=== PATIENT | male | born 1985 | race Asian ===

== ENCOUNTER 2020-01-04 10:10 | Inpatient (IN) | payer BC ==
[~2020-01-04] VITALS: Ht 170.2 cm; Wt 71.2 kg
[2020-01-04 10:20] VITALS: Ht 170.2 cm; Wt 71.2 kg
--- NOTE | 2020-01-04 10:43 | NUR ---
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 PT STATES HAVING INTERMITTENT BLOATING AND NAUSEA "FOR THE PAST MONTH". PT DENIES N/V/D AND DENIES PAIN OR BURNING WITH URINATION AT THIS TIME. PT IS A&OX4, NOTED TO BE HOLDING RUQ, VSS, PLACED IN GOWN, PLACED ON MONITOR, AWAITING MSE. WILL CONT TO MONITOR.
--- NOTE | 2020-01-04 11:15 | NUR ---
AT BEDSIDE FOR EVAL.
[2020-01-04 11:55] LABS: UA SPECIFIC GRAVITY >=1.030 (1.005-1.035); microscopic required? YES; urine erythrocyte TRACE (NEGATIVE)
--- NOTE | 2020-01-04 12:09 | NUR ---
US AT BEDSIDE
[2020-01-04 12:19] LABS: CALCIUM 8.8 mg/dL (8.5-10.1); CARBON DIOXIDE 28.5 mmol/L (21-32); CHLORIDE SERUM 102 mmol/L (98-107); GFR1 > 60 mL/min; GLUCOSE SERUM 348 mg/dL (74-106); POTASSIUM SERUM 4.9 mmol/L (3.5-5.1); SODIUM SERUM 137 mmol/L (136-145)
[2020-01-04 12:23] LABS: ALKALINE PHOSPHATASE 170 U/L (46-116); ALT/SGPT 43 U/L (16-63); AST/SGOT 13 U/L (15-37); BILIRUBIN TOTAL 0.64 mg/dL (0.20-1.00); LIPASE 181 IU/L (73-393); TOTAL PROTEIN, SERUM 6.3 g/dL (6.4-8.2)
[2020-01-04 12:24] LABS: ALBUMIN 2.9 g/dL (3.4-5.0)
[2020-01-04 12:30] LABS: BASOPHIL % 0.2 % (0-2); PLATELET COUNT 302 x10^3mcL (130-400); RED CELL DISTRIBUTION WIDTH 13.1 % (11.5-14.5)
--- NOTE | 2020-01-04 12:57 | NUR ---
LAB AT BEDSIDE
--- NOTE | 2020-01-04 13:38 | NUR ---
CALLED MEDSURG UNIT, RN UNVAILABLE TO TAKE REPORT WILL CALL BACK WHEN SHE RETURNS TO MEDSURG FLOOR.
--- NOTE | 2020-01-04 13:58 | NUR ---
REPORT GIVEN TO ADDIE, AWAITING PENDING SUNNY RESULTS TO TRANSFER PT.
--- NOTE | 2020-01-04 14:32 | NUR ---
PT MEDICATED WITH MORPHINE 1MG IVP PER ADMISSION ORDER.
[2020-01-04 15:19] VITALS: BP 143/88
--- NOTE | 2020-01-04 15:28 | NUR ---
RECEIVED PT FROM ER, PT ADMIT FOR ACUTE CHOLECYSTITIS, HYPERGLYCEMIA, PT IS A/O X4, VERBAL RESPONSIVE. LUNG SOUND CLEAR BILATERAL, NO COUGH, NO SOB. PT DENY ANY CHEST PAIN OR DISCOMFORT, BOWEL SOUND PRESENT ALL 4 QUADRANTS, C/O ABD PAIN AT RIGHT UPPER QUADRANTS, DENY ANY N/V. PEDAL PULSE PRESENT BOTH FEET, NO EDEMA, IV AT LEFT HAND, NO LEAKING, NO INFILTRATION. ALL ADLS ASSIST, ALL NEED MET, CALL LIGHT IN REACH, WILL CONTINUE TO MONITOR.
--- NOTE | 2020-01-04 15:30 | NUR ---
REC'VD PT FROM RESOURCE RN. WILL RESUME CARE
--- NOTE | 2020-01-04 16:03 | NUR ---
PT C/O ABDOMINAL PAIN, GIVEN NORCO PER EMAR
[2020-01-04 16:53] VITALS: BP 156/86
--- NOTE | 2020-01-04 16:53 | NUR ---
LEAD CARPENTER REPORTS TEMP OF 100.9, GIVEN TYLENOL PER EMAR.
--- NOTE | 2020-01-04 16:57 | NUR ---
PT C/O 08/17 ABDOMINAL PAIN, GIVEN MORPHINE PER EMAR
--- NOTE | 2020-01-04 18:53 | NUR ---
PT BROUGHT DOWN TO OR VIA BED ACCOMPANIED BY ASSOCIATE DEAN OF WOMEN AND MST RN. LYRIC WIPES DONE. IV SITE TO BECKY HENSON.
--- NOTE | 2020-01-04 18:54 | NUR ---
WILL ENDORSE CARE TO NEXT SHIFT
--- NOTE | 2020-01-04 20:00 | NUR ---
PT IN OR AT THIS TIME. WAITING FOR OR REPORT.
[2020-01-04 22:33] LABS: RED CELL DISTRIBUTION WIDTH 13.2 % (11.5-14.5)
[2020-01-04 22:38] LABS: PLATELET COUNT 402 x10^3mcL (130-400)
[2020-01-04 22:45] LABS: CALCIUM 8.1 mg/dL (8.5-10.1); CHLORIDE SERUM 103 mmol/L (98-107); CREATININE SERUM 1.3 mg/dL (0.7-1.3); GFR1 > 60 mL/min; GLUCOSE SERUM 269 mg/dL (74-106); POTASSIUM SERUM 4.7 mmol/L (3.5-5.1); SODIUM SERUM 136 mmol/L (136-145)
[2020-01-04 22:57] LABS: BAND NEUTROPHIL 6 % (0-10); BASOPHIL 0 % (0-2); MONOCYTE 3 % (0-7); SEGMENTED NEUTROPHILS 87 % (37-75)
[2020-01-04 22:59] LABS: rbc morphology (normal/abnorm) ABNORMAL (NORMAL)
[2020-01-05] VITALS (12 sets, daily range): BP systolic 106–156; BP diastolic 66–92
--- NOTE | 2020-01-05 01:01 | NUR ---
RECEIVED PT FROM OR. PT ARRIVED VIA GURNEY WITH OR NURSE. VITAL SIGNS ARE BP 150/92 (113), HR 90, O2 99 ON 4L NC, RR 16, TEMP 96.3, PT DENIES PAIN AT THIS TIME. PLACED PT ON TELE MONITOR #47, PT READING NSR. PT SLEEPING EASILY AROUSABLE, ORIENTEDX4. PULSES PALPABLE. NO EDEMA NOTED. PT PLACED ON 4L NC PER ORDER, SATURATION 99%. RR EVEN AND UNLABORED. PT DENIES CHEST PAIN/PRESSURE/SOB/DIFFICULTY BREATHING. BOWEL SOUNDS HYPOACTIVE. PT PLACED ON STRICT I&O. MILD GENERALIZED WEAKNESS. PT HAS 2 SURGICAL WOUNDS (RIGHT MID ABDOMEN AND UMBILICUS). NERI DRAIN PLACED ON R SIDE DRAINING SANGUINEOUS FLUID. PT DENIES PAIN AT THIS TIME, BUT REPORTS FEELING SORE. IV TO PTS R HAND AND L HAND, PATENT AND INTACT. CALL LIGHT WITHIN REACH. BED IN LOWEST POSITION. WILL CONTINUE TO MONITOR.
--- NOTE | 2020-01-05 01:19 | NUR ---
SPOKE WITH DOCTOR VALENZUELA REGARDING CURRENT ORDERS. DOCTOR ORDERED TO CONTINUE LR FLUIDS AND HOLD INSULIN UNTIL MORNING.
--- NOTE | 2020-01-05 03:33 | NUR ---
PT SLEEPING COMFORTABLY AT THIS TIME. NO SIGNS OF ACUTE DISTRESS NOTED. NO C/O PAIN OR DISCOMFORT. CALL LIGHT WITHIN REACH. BED IN LOWEST POSITION. WILL CONTINUE TO MONITOR.
--- NOTE | 2020-01-05 05:27 | NUR ---
EDUCATED PT REGARDING INCENTIVE SPIROMETER AND USING PILLOW WHEN NEEDING TO COUGH. PT REQUESTED PAIN MEDICATION, MEDICATED PT PER MAR. WILL CONTINUE TO MONITOR.
--- NOTE | 2020-01-05 06:35 | NUR ---
PT AWAKE AT THIS TIME. PT C/O PAIN TO ABD, MEDICATED PT PER MAR. NO SIGNS OF ACUTE DISTRESS NOTED. RR EVEN AND UNLABORED. IV TO R HAND INFUSING FLUIDS. IV TO L HAND SALINE LOCKED, PATENT AND INTACT. NO SIGNS OF INFILTRATION NOTED. ABD SITE CDI, NO SIGNS OF DRAINAGE NOTED. NERI DRAIN TO R SIDE, REMOVED 15ML OF SANGUINUOUS FLUID. PT VOIDED [address] ALL NEEDS/CONCERNS ADDRESSED THROUGHOUT THE SHIFT. WILL ENDORSE CARE TO ONCOMING SHIFT NURSE.
[2020-01-05 06:49] LABS: BASOPHIL % 0.1 % (0-2); PLATELET COUNT 335 x10^3mcL (130-400)
[2020-01-05 07:23] LABS: CALCIUM 8.7 mg/dL (8.5-10.1); CARBON DIOXIDE 23.6 mmol/L (21-32); CHLORIDE SERUM 102 mmol/L (98-107); GFR1 > 60 mL/min; GLUCOSE SERUM 315 mg/dL (74-106); POTASSIUM SERUM 4.9 mmol/L (3.5-5.1); SODIUM SERUM 138 mmol/L (136-145)
--- NOTE | 2020-01-05 07:50 | NUR ---
RECEIVED PT FROM PM NURSE. PT IS AWAKE AND RESTING COMFORTABLY AT THIS TIME. NO FACIAL DISTRESS OR SOB NOTED. PT IS A/OX4. ABLE TO MAKE NEEDS KNOWN. DENIES DUBOIS/DIZZINESS. LUNG SOUNDS CTA. BREATHING E/U ON 4L NC. TELE #47. DENIES CP/PRESSURE. PULSES EVEN AND PALPABLE. NO EDEMA NOTED. HYPOACTIVE BSX4. ABD SOFT AND NON DISTENDED. DENIES N/V/D. VOIDS FREELY. ON STRICT I & O. PT HAS TWO ABD INCISONS (RIGHT MID ABDOMEN AND UMBILICUS). NERI DRAIN IN PLACE TO THE RIGHT SIDE DRAINING SANGUINEOUS FLUID. NO C/O PAIN AT THIS TIME. IV TO R HAND AND L HAND NOTED. LR CURRENTLY INFUSING AT 125ML/HR TO RIGHT HAND. L HAND REMAINS SL. SCD IN PLACE. PILLOW IN PLACE FOR SPLINTING. BED AT LOWEST POSITION. CALL BUTTON WITHIN REACH. WILL CONTINUE TO MONITOR.
--- NOTE | 2020-01-05 11:36 | NUR ---
SPOKE TO DR VALENZUELA ABOUT THE FLUID THAT PATIENT IS GETTING. DR VALENZUELA SAID TO CONTINUE THE D5 1/2 NS. NOTED AND WILL ADMINISTER IT WHEN IT IS DUE.
[2020-01-05 12:36] LABS: BILIRUBIN DIRECT 0.3 mg/dL (0.0-0.2); BILIRUBIN TOTAL 0.7 mg/dL (0.20-1.00)
--- NOTE | 2020-01-05 12:36 | NUR ---
DR STALEY HERE TO SEE PATIENT AT BEDSIDE. ORDERED TORADAL 15MG IV Q8H TO BE GIVEN AROUND THE CLOCK FOR PAIN CONTROL. DR STALEY ALSO SAID TO ADJUST THE FLUID RATE FROM 80 TO 75ML/HR. NOTED AND CARRIED OUT.
[2020-01-05 12:37] LABS: ALBUMIN 2.5 g/dL (3.4-5.0); TOTAL PROTEIN, SERUM 5.2 g/dL (6.4-8.2)
--- NOTE | 2020-01-05 12:37 | NUR ---
SPOKE TO DR VALENZUELA ABOUT PT'S HIGH BLOOD SUGAR. DR VALENZUELA ORDERED LANTUS 20U NOW. NOTED AND CARRIED OUT.
--- NOTE | 2020-01-05 18:48 | NUR ---
NO ACUTE DISTRESS DURING SHIFT. ALL NEEDS MET AND ANTICIPATED. WILL ENDORSE CARE TO PM SHIFT FOR CONTINUITY OF CARE.
--- NOTE | 2020-01-05 19:25 | NUR ---
RECEIVED PT FROM DAY SHIFT RN. PT A&O X4. PT ON TELE MONITORING WITH NSR. PT DENIES CHEST PAIN OR DISCOMFORT AT THIS TIME. PULSES REGULAR AND NO EDEMA NOTED. LUNG SOUNDS CLEAR BILATERAL, ON 4L O2 W/NC, 99% OF O2SAT. BOWEL SOUNDS HYPOACTIVE.PT APPEARS WEAK AND CURRENTLY ON BEDREST. 2 ABD INCISIONS NOTED, NO WARM OR REDNESS NTOED, NERI DRAIN SITE INTACT AND PATENT. IV SITE INTACT AND PATENT, NO REDESS OR SWELLING NOTED. INSTRUCTED PT TO USE CALL LIGHT AND PHONE WHEN NEED ASSISTANCE. WILL CONTINUE TO MONITOR PT.
--- NOTE | 2020-01-05 22:16 | NUR ---
PT C/O ABDOMAN PAIN 07/18, NORCO PO GIVEN PRN SEE EMAR . WILL CONTINUE TO MONITOR PT.
--- NOTE | 2020-01-05 22:25 | NUR ---
CALLED REGARDING PT C/O AB PAIN 07/18, AND PT STATED " FEEL LIKE GAS BLOWING'. IS AWARE AND WILL CONTINUE TO MONITOR PT.
--- NOTE | 2020-01-05 22:57 | NUR ---
RECHECKED ON PT. PT STATED HE FEEL MUCH BETTER,THE PAIN IS LIKE 3/10, AND FEEL LESS GASSY NOW. INSTRUCTED PT TO CALL IF ACUTE CHANGES NOTED.
[2020-01-05 23:49] LABS: PLATELET COUNT 246 x10^3mcL (130-400); RED CELL DISTRIBUTION WIDTH 13.2 % (11.5-14.5)
[2020-01-05 23:53] LABS: BASOPHIL % 0 % (0-2)
[2020-01-06 00:10] LABS: ALKALINE PHOSPHATASE 105 U/L (46-116); ALT/SGPT 111 U/L (16-63); AST/SGOT 53 U/L (15-37); BILIRUBIN TOTAL 0.4 mg/dL (0.20-1.00); CALCIUM 8.6 mg/dL (8.5-10.1); CARBON DIOXIDE 30.6 mmol/L (21-32); CHLORIDE SERUM 102 mmol/L (98-107); GFR1 > 60 mL/min; GLUCOSE SERUM 303 mg/dL (74-106); POTASSIUM SERUM 4.3 mmol/L (3.5-5.1); SODIUM SERUM 133 mmol/L (136-145)
[2020-01-06 00:11] LABS: TOTAL PROTEIN, SERUM 5.5 g/dL (6.4-8.2)
[2020-01-06 00:12] LABS: ALBUMIN 2.2 g/dL (3.4-5.0)
--- NOTE | 2020-01-06 02:09 | NUR ---
PT C/O AB PAIN 06/17, BP:124/81,HR 109, MEDICATION MORPHINE 1ML IV PUSH GIVEN. WILL CONTINUE TO MONITOR PT.
--- NOTE | 2020-01-06 03:26 | NUR ---
PT REQUESTED FOR PAIN MEDICATION, SCALED PAIN AT 6/10 ON INCISION SITE. NORCO PO PRN GIVEN. WILL CONTINUE TO MONITOR PT.
[2020-01-06 06:05] VITALS: BP 128/80
--- NOTE | 2020-01-06 07:04 | NUR ---
PT RESTING IN BED. NO C/O PAIN AT THIS TIME. PT ON O2 2L W/NC. DENIES SOB OR N/V AT THIS TIME. WILL ENDORSE CARE TO DAY SHIFT RN.
[2020-01-06 07:20] LABS: BILIRUBIN DIRECT 0.24 mg/dL (0.0-0.2); BILIRUBIN TOTAL 0.43 mg/dL (0.20-1.00)
[2020-01-06 07:22] LABS: ALBUMIN 2.1 g/dL (3.4-5.0); TOTAL PROTEIN, SERUM 5.5 g/dL (6.4-8.2)
--- NOTE | 2020-01-06 07:39 | NUR ---
RECEIVED PT FROM PM NURSE. PT IS AWAKE AND TALKING ON THE PHONE AT THIS TIME. NO FACIAL DISTRESS OR SOB NOTED. PT IS A/OX4. ABLE TO MAKE NEEDS KNOWN. DENIES DUBOIS/DIZZINESS. LUNG SOUNDS DIMINISHED. BREATHING E/U ON 2L NC. TELE #47. DENIES CP/PRESSURE. PULSES EVEN AND PALPABLE. NO EDEMA NOTED. NORMACTIVE BSX4. ABD SOFT AND ROUND. DENIES N/V/D. VOIDS FREELY. URINAL BY BEDSIDE. GENERALIZED WEAKNESS NOTED. WILL ENCOURAGE PATIENT TO GET UP AND AMBULATE. PT HAS TWO ABD INCISIONS (RIGHT MID ABDOMEN AND UMBILICUS). NERI DRAIN IN PLACE TO RIGHT ABD DRAINING SCANT SANGUINEOUS FLUID. NO C/O PAIN AT THIS TIME.IV TO R HAND AND L HAND NOTED. PT IS CURRENTLY GETTING D5 1/2 NS AT 75ML/HR. BED AT LOWEST POSITION. CALL BUTTON WITHIN REACH. WILL CONTINUE TO MONITOR.
[2020-01-06 07:41] LABS: ALKALINE PHOSPHATASE 109 U/L (46-116); ALT/SGPT 128 U/L (16-63); AST/SGOT 60 U/L (15-37); CALCIUM 8.6 mg/dL (8.5-10.1); CARBON DIOXIDE 27.8 mmol/L (21-32); CHLORIDE SERUM 103 mmol/L (98-107); CREATININE SERUM 0.9 mg/dL (0.7-1.3); GFR1 > 60 mL/min; GLUCOSE SERUM 255 mg/dL (74-106); POTASSIUM SERUM 4.3 mmol/L (3.5-5.1); SODIUM SERUM 138 mmol/L (136-145)
[2020-01-06 07:43] LABS: ALBUMIN 2.1 g/dL (3.4-5.0); TOTAL PROTEIN, SERUM 5.6 g/dL (6.4-8.2)
[2020-01-06 08:07] LABS: BASOPHIL % 0.1 % (0-2); PLATELET COUNT 242 x10^3mcL (130-400); RED CELL DISTRIBUTION WIDTH 12.8 % (11.5-14.5)
[2020-01-06 09:15] VITALS: BP 133/75
--- NOTE | 2020-01-06 09:19 | NUR ---
PT HERE TO WORK WITH PT. PREMEDICATED PT WITH MORPHINE PRIOR TO AMBULATION. WILL CONTINUE TO MONITOR.
[2020-01-06 11:26] VITALS: BP 115/67
--- NOTE | 2020-01-06 11:58 | NUR ---
SPOKE TO DR VALENZUELA ABOUT PATIENT'S TRENDING HGB LEVEL FROM 8.2 TO 7.7. NNO AT THIS TIME. ALSO INQUIRED ABOUT THE TYPE OF FLUID THAT PATIENT SHOULD BE GETTING DUE TO PATIENT BEING ADVANCED TO A LOW FAT DIET AND HIS HIGH BLOOD GLUCOSE LEVEL. DR VALENZUELA SAID TO KEEP IT D5 1/2NS FOR NOW UNTIL PT CAN TOLERATE HIS DIET. WILL CONTINUE TO MONITOR.
--- NOTE | 2020-01-06 15:41 | NUR ---
ENCOURAGED PATIENT TO AMBULATE. PREMEDICATED PT WITH MORPHINE PRIOR. PT WAS ONLY ABLE TO DO STAND UP EXERCISES BY BEDSIDE. WILL CONTINUE TO MONITOR.
[2020-01-06 16:18] VITALS: BP 103/62
--- NOTE | 2020-01-06 18:56 | NUR ---
NO ACUTE DISTRESS DURING SHIFT. WILL ENDORSE CARE TO PM SHIFT FOR CONTINUITY OF CARE.
--- NOTE | 2020-01-06 19:35 | NUR ---
RECEIVED PT LAYING DOWN W HOB ELEVATED. AAOX4. ON TELE #[address] DENIES CHEST PAIN/CHEST PRESSURE. BREATHING IS EVEN AND UNLABORED ON 2LNC. NO RESP DISTRESS NOTED. ABD IS SOFT/DISTENDED. MID SURGICAL INCISION TO ABD, COMPOUNDING SCALER W ENRI DRAIN WITH MINIMAL DRAINAGE. GENERALIZED WEAKNESS. C/O 4/10 ABD PAIN, WILL MEDICATE ACCORDINGLY PER MAR ORDER. IV TO RH AND LH PATENT AND INTACT. NO ERYTHEMA NOTED. BED IN LOWEST POSITION. CALL LIGHT WITHIN REACH. WILL CONTINUE TO MONITOR.
[2020-01-06 20:39] VITALS: BP 113/77
--- NOTE | 2020-01-07 | NUR ---
PT RESTING COMFORTABLY. BREATHING IS EVEN AND UNLABORED ON 3LNC. NO RESP DISTRESS NOTED. WILL CONTINUE TO MONITOR.
[2020-01-07 04:06] VITALS: BP 118/76
--- NOTE | 2020-01-07 04:50 | NUR ---
PT RESTED IN INTERVALS THROUGHOUT THE NIGHT WITH NO ACUTE EVENTS OCCURRING DURING THE SHIFT. BREATHING IS EVEN AND UNLABORED ON 3LNC. NO RESP DISTRESS NOTED. WILL CONTINUE TO MONITOR AND ENDORSE CARE TO DAY SHIFT NURSE.
[2020-01-07 05:44] VITALS: BP 123/81
--- NOTE | 2020-01-07 06:50 | NUR ---
DR STALEY IN TO SEE PT AT THIS TIME. AWARE OF PT BEING TACHYCARDIC. STATED TO DC IV FLUIDS, ENCOURAGE PO FLUIDS, AND AMBULATE TODAY WTIH WALKER IF POSSIBLE. PT VERBALIZES UNDERSTANDING. WILL CARRY OUT ORDERS AT MAKE DAY SHIFT AWARE.
--- NOTE | 2020-01-07 07:36 | NUR ---
RECEIVED PT FROM PM NURSE. PT IS AWAKE AND RESTING AT THIS TIME. NO FACIAL DISTRESS OR SOB NOTED. ENCOURAGED PT TO GET UP AND AMBULATE TODAY MUCH HE COULD TOLERATE. PT VERBALIZED UNDERSTANDING. PT IS A/OX4. ABLE TO MAKE NEEDS KNOWN. DENIES DUBOIS/DIZZINESS. LUNG SOUNDS DIMINISHED. BREATHING E/U ON 3L NC. TELE $47. DENIES CHEST PAIN. PULSES EVEN AND PALPABLE. NO EDEMA NOTED. ACTIVE BSX4. ABD SOFT AND ROUND. DENIES N/V/D. VOIDS FREELY. URINAL BY BEDSIDE. TWO SURGICAL INCISIONS NOTED TO RIGHT MID ABDOMEN AND UMBILICUS. NERI DRAIN IN PLACE TO RIGHT ABD DRAINING SCANT SANGUINEOUS FLUID. C/O PRESSURE PAIN TO INCISION SITE WHEN SITTING UP. WILL MEDICATE PER EMAR. IV 20G TO R HAND AND L HAND. SL. FLUSHES WITH NO DIFFICULTY. BED AT LOWEST POSITION. CALL BUTTON WITHIN REACH. WILL CONTINUE TO MONITOR.
[2020-01-07 07:42] LABS: ALKALINE PHOSPHATASE 123 U/L (46-116); ALT/SGPT 93 U/L (16-63); AST/SGOT 31 U/L (15-37); BILIRUBIN DIRECT 0.22 mg/dL (0.0-0.2); BILIRUBIN TOTAL 0.44 mg/dL (0.20-1.00); CALCIUM 8.8 mg/dL (8.5-10.1); CARBON DIOXIDE 27.5 mmol/L (21-32); CHLORIDE SERUM 99 mmol/L (98-107); CREATININE SERUM 0.8 mg/dL (0.7-1.3); GFR1 > 60 mL/min; GLUCOSE SERUM 247 mg/dL (74-106); POTASSIUM SERUM 3.9 mmol/L (3.5-5.1); SODIUM SERUM 135 mmol/L (136-145)
[2020-01-07 07:43] LABS: RED CELL DISTRIBUTION WIDTH 13.3 % (11.5-14.5)
[2020-01-07 07:44] LABS: PLATELET COUNT 251 x10^3mcL (130-400)
[2020-01-07 07:45] LABS: TOTAL PROTEIN, SERUM 5.7 g/dL (6.4-8.2)
[2020-01-07 08:10] LABS: BASOPHIL % 0 % (0-2)
[2020-01-07 08:13] VITALS: BP 106/71
--- NOTE | 2020-01-07 11:54 | NUR ---
INQUIRED DR VALENZUELA ABOUT WHETHER TO CONTINUE PATIENT'S SCHEDULED AFTERNOON DOSE OF LANTUS D/T PT NO LONGER RECEIVING D5 1/[address] VALENZUELA AGREED TO DC THE LANTUS. NOTED AND CARRIED UT.
[2020-01-07 12:14] VITALS: BP 113/78
[2020-01-07 16:53] VITALS: BP 125/79
--- NOTE | 2020-01-07 18:38 | NUR ---
NO ACUTE DISTRESS NOTED DURING SHIFT. ALL NEEDS ANTICIPATED AND MET. PT AMBULATED FROM THE BED TO THE CHAIR SEVERAL TIMES. ALSO AMBULATED FROM BED TO RESTROOM WITHOUT ASSISTIVE DEVICE. WILL ENDORSE CARE TO PM SHIFT FOR CONTINUITY OF CARE.
--- NOTE | 2020-01-07 19:30 | NUR ---
RECEIVED PT LAYING IN BED WITH HOB ELEVATED. AAOX4. ON TELE #[address] DENIES CHEST PAIN/CHEST PRESSURE. BREATHING IS EVEN AND UNLABORED ON RA. NO RESP DISTRESS NOTED. ABD IS SOFT/DISTENDED. BS ACTIVE. DENIES N/V/D. VOIDS FREELY. DENIES DYSURIA. GENERALIZED WEAKNESS. TWO SURGICAL INCISIONS TO ABD, SUPERVISOR STOCK RANCH, NO S/SX OF INFECTION WITH NERI DRAIN, SCANT SEROUS DRAINAGE. C/O 5/10 ABD PAIN, PT AWARE OF SCHEDULED TYLENOL TO BE RECEIVED. IV TO R HAND AND L HAND PATENT AND INTACT. NO ERYTHEMA NOTED. BED IN LOWEST POSITION. CALL LIGHT WITHIN REACH. WILL CONTINUE TO MONITOR.
[2020-01-07 20:50] VITALS: BP 125/80
--- NOTE | 2020-01-07 21:58 | NUR ---
ROUTINE MEDICATIONS ADMINISTERED AND TOLERATED WELL. NO ACUTE DISTRESS NOTED. BREATHING IS EVEN AND UNLABORED ON RA. NO RESP DISTRESS NOTED. IV TO LH INFILTRATED, DC'D WITH CATHETER INTACT. IV TO RH PATENT AND INTACT. ENCOURAGED PT TO AMBULATE. PT VERBALIZES UNDERSTANDING. STATES PAIN IS MILD AT THIS TIME. ENCOURAGED PT TO USE CALL LIGHT WHEN PAIN INCREASES. WILL CONTINUE TO MONITOR.
--- NOTE | 2020-01-07 23:32 | NUR ---
MORPHINE PRN ADMINISTERED AT THIS TIME FOR 7/10 PAIN TO SURGICAL SITE. WILL REASSESS AND CHECK EFFECTIVENESS.
[2020-01-08 05:35] VITALS: BP 150/81
--- NOTE | 2020-01-08 06:32 | NUR ---
PT RESTED IN PERIODS THROUGHOUT THE NIGHT WITH NO ACUTE EVENTS OCCURRING DURING THE SHIFT. BREATHING IS EVEN AND UNLABORED ON RA. NO RESP DISTRESS NOTED. COMFORT AND SAFETY MEASURES MAINTAINED. ALL NEEDS ASSESSED AND ATTENDED TO. WILL CONTINUE TO MONITOR AND ENDORSE CARE TO DAY SHIFT NURSE
--- NOTE | 2020-01-08 07:25 | NUR ---
RECEIVED PT FROM CORN DETASSELER MACHINE OPERATOR. ASSESSED AND WILL DOCUMENT. DENIES PAIN THIS TIME. STABLE. SAFTEY PRECAUTIONS ARE IN PLACE. WILL MONITOR.
[2020-01-08 07:32] LABS: BASOPHIL % 0.4 % (0-2); PLATELET COUNT 318 x10^3mcL (130-400)
[2020-01-08 07:49] LABS: CALCIUM 8.4 mg/dL (8.5-10.1); CARBON DIOXIDE 28.4 mmol/L (21-32); CHLORIDE SERUM 100 mmol/L (98-107); CREATININE SERUM 0.8 mg/dL (0.7-1.3); GFR1 > 60 mL/min; GLUCOSE SERUM 200 mg/dL (74-106); POTASSIUM SERUM 3.5 mmol/L (3.5-5.1); SODIUM SERUM 137 mmol/L (136-145)
[2020-01-08 07:58] LABS: BILIRUBIN DIRECT 0.27 mg/dL (0.0-0.2); BILIRUBIN TOTAL 0.5 mg/dL (0.20-1.00)
[2020-01-08 07:59] LABS: ALBUMIN 2.4 g/dL (3.4-5.0); TOTAL PROTEIN, SERUM 5.2 g/dL (6.4-8.2)
[2020-01-08 08:22] VITALS: BP 140/94
--- NOTE | 2020-01-08 11:00 | NUR ---
PT RESTING IN BED COMFORTABLY. DENIES PAIN THIS TIME. STABLE.
[2020-01-08 11:22] VITALS: BP 132/84
--- NOTE | 2020-01-08 13:25 | NUR ---
PT IS SLEEPING , DENIES PAIN THIS TIME. STABLE.
[2020-01-08 17:01] VITALS: BP 143/87
--- NOTE | 2020-01-08 18:13 | NUR ---
PT IS SLEEPING THIS TIME, STABLE. DENIES ANY PAIN. EATING WELL, TOLERATED WELL.
--- NOTE | 2020-01-08 19:15 | NUR ---
PT REMAINS STABLE, DENIES PAIN. GAVE REPORT TO INTERPRETER FOR THE DEAF NURSE.
--- NOTE | 2020-01-08 19:20 | NUR ---
RECEIVED PT FROM DAY SHIFT RN. PT A&O X4, DENIES CHEST PAIN OR DISCOMFORT. LUNG SOUNDS CLEAR BILATERAL. INCISION DRESSING INTACT AND DRY, NERI DRAINAGE INTACT AND PATENT. PT DENIES SOB AT ROOM AIR. INSTRUCTED TO USE CALLL LIGHT AND PHONE, WILL CONTINUE TO MONITOR PT.
[2020-01-08 20:53] VITALS: BP 136/89
--- NOTE | 2020-01-09 00:30 | NUR ---
IN TO CHECKED ON PT. PT RESING IN BED. NO DISTRESS NOTED. SAFETY MEASURES IN PLACE. WILL CONTINUE TO CARE FOR PT.
[2020-01-09 04:53] VITALS: BP 148/92
--- NOTE | 2020-01-09 06:59 | NUR ---
PT RESTING IN BED. NO ACUTE CHANGES DURING SHIFT. SAFTEY MEASURES IN PLACE. WILL ENDORSE CARE TO DAY SHIFT RN.
--- NOTE | 2020-01-09 07:25 | NUR ---
RECEIVED PT FROM OVEN TECHNICIAN. ASSESSED AND WILL DOCUMENT. DENIES PAIN THIS TIME. NO DISTRESS NOTED. SAFTEY PRECAUTIONS ARE IN PLACE. WILL MONITOR.
[2020-01-09 07:46] LABS: BASOPHIL % 0.5 % (0-2); PLATELET COUNT 376 x10^3mcL (130-400); RED CELL DISTRIBUTION WIDTH 13.6 % (11.5-14.5)
[2020-01-09 08:12] LABS: BILIRUBIN DIRECT 0.21 mg/dL (0.0-0.2); BILIRUBIN TOTAL 0.42 mg/dL (0.20-1.00)
[2020-01-09 08:13] LABS: ALBUMIN 2.2 g/dL (3.4-5.0); TOTAL PROTEIN, SERUM 6.1 g/dL (6.4-8.2)
[2020-01-09 08:59] VITALS: BP 147/88
--- NOTE | 2020-01-09 09:45 | NUR ---
CAME, INFORMED HIM NOTHING COMING OUT FROM NERI, HE REMOVED NERI AND APPLIED DRESSING. HE SAID IF PT CAN HAVE BM, PT CAN GO HOME.
--- NOTE | 2020-01-09 10:30 | NUR ---
PT IS BLEEDING FROM NERI SITE, DRESSING CHANGED.
--- NOTE | 2020-01-09 11:30 | NUR ---
PT CALLED AGAIN AND SAID, HIS DRESSING TO NERI SITE IS SOAKED WITH BLOOD AGIN AND BLEEDING OUT. CHANGED DRESSING AND INFORMED . HE SAID IF PT CONCERNED AND NOT COMFORTABLE TO GO HOME, HE CAN STAY TODAY AND DC TOMORROW. INFORMED . CHARGE NURSE AWARE.
[2020-01-09 12:01] VITALS: BP 146/96
--- NOTE | 2020-01-09 14:25 | NUR ---
Initial Nutrition Assessment: GIANCARLO PALACIOS 34M MR Dx: Acute cholecystitis, hyperglycemia PMHx: none noted PSHx: none noted Labs: (01/08) H/H 8.5/25L, Alk ph 124H, albumin 2.2L, (01/07) BG 200H, Ca 8.4L, (01/03) A1C 9.8H *no lipid panel Meds: Glucophage, Humulin, Tylenol, Neurontin, Humulin, Chemult, Morphine, Phenergan, Dilaudid, Tylenol Diet: low fat PO intake since admission: 20-100% x 8 meals with average PO intake of 74.275% Ht: 170.18cm/67in Wt: 85kg/187lbs BMI: 29.3 Bed scale: 211lbs IBW: 67.27kg/148lbs %IBW: 126.35% ABW: 72kg UBW: 210lbs per pt Age: 34 Food Allergies: NKFA per pt Edema: none noted Last BM: 01/03 Skin: surgical incision dry and intact Hector: 21 Per H and P (01/03), pt is a 34 yo male no sign PMH, Hx of DM. He presented to the ED with acute abd pain since at night, worsening. He was seen nd evaluated at the ED, us abd revealed acute cholecystitis. He was also found to have hyperglycemia. He was admitted to med surg. Pt was admitted with dx: Acute abd Pain, Acute cholecystitis, DM, Hyperglycemia, Leukocytosis, Lactic acidosis RD Note (01/09/2020) Pt was seen sitting in bed during bedside visit. Pt reported feeling nauseated this morning, but it was improved after he ate breakfast, and pt also felt bloated. Pt mentioned that this is the first meal he had since his procedure, and pt had approximately 90% of intake per observation. Pt reported possibly weight loss, but he was not able to specify the amount. However, pt reported usual body weight being 210lbs approximately 2 months ago. Pt stated that his admission weight should have been 187 instead of 157lbs. Estimated needs and BMI re-calculated based on admission weight provided by pt. Problem with: N/V/D/C: little nauseated but improved with breakfast intake Problems with: Chewing: Swallowing: no per pt Current appetite: good and improved per pt Recent wt change: possible weight loss %wt change: n/a Height: 5'7" per pt Vitamin/Supplement use: none per pt Special diet at home: No per pt Physical activity: no per pt Nutrition education given (specify specific nutrition education and handout given): Pt reported being new diabetic, and DM education and low-fat diet education provided. Pt reported having experience with DM diet d/t a family member having DM. Written education "Carbohydrate Counting for People with Diabetes" and "Fat-Restricted Nutrition Therapy" from [facility] were provided to pt. Also encouraged pt to participate in physical activity. Pt acknowledged and accepted education. Food-drug interactions? Education given? n/a Estimated Nutritional Needs Based on ideal body weight (72kg) Energy: 6091-6613 kcal/day (20-25 kcal/kg for weight reduction) Protein: 72-86 g/day (1-1.2 g/kg for s/p open cholecystectomy) Fluid: 1568-8341 mL/day (1 mL/kcal) Nutrition Diagnosis: 1. Impaired nutrition utilization r/t new onset diabetes a/e/b pt elevated A1C 9.8 on 01/03. Intervention 1. Recommend CCHO and low-fat diet Recommendation provided to Dr. Valencia and stunt man, and charge master analyst reported that pt will be d/c. Monitor/Evaluate Goal: PO intake at least 75% of estimated needs Monitor: PO intake, Labs, GI function, Body weight F/U in 3-5 days as moderate risk 01/11-
--- NOTE | 2020-01-09 14:26 | NUR ---
1. Recommend CCHO and low-fat diet Recommendation provided to Dr. Valencia and parlor maid, and charge auditor reported that pt will be d/c.
--- NOTE | 2020-01-09 15:00 | NUR ---
PT IS BLEEDING FROM THE SITE AGAIN, CHANGED DRESSING. PT SAID HE IS NOT COMFORTABLE TO GO HOME TODAY. PT HAD SMALL BM BEFOR MOM BUT NOTHING AFTER MOM YET. REBEKA BAUER SAID 6HR AFTER MOM IF PT DIDNOT HAVE BM, CAN HAVE ANOTHER MOM. PT IS STABLE.
[2020-01-09 16:05] VITALS: BP 145/90
--- NOTE | 2020-01-09 19:00 | NUR ---
PT RESTING IN BED. NERI SITE IS BLEEDING STILL BUT SLOWING DOWN, CHANGE DRESSING. PT SAID HE HAS NOT HAD GOOD BM YET, LAST BM WAS HARD AND SMALL. ORDERED ANOTHER MOM PER ORDER. GAVE REPORT TO PRINTING MACHINE MECHANIC NURSE.
--- NOTE | 2020-01-09 21:15 | NUR ---
RECEIVED PT FROM JAYDON OLEARY. PT IS AAOX4, DENIES HEADACHE/NAUSEA/DIZZINESS. PT IS TELE #47, NSR, DENIES CHEST PAIN. PULSES ARE EQUAL BILATRALLY, NO EDEMA NOTED. PT IS CTA, ON RA, DENIES SOB. NO ACUTE DISTRESS NOTED, EVEN AND UNLABORED BREATHING. ABDOMEN IS SOFT AND ROUND, PATIENT REPORTS PAIN ON LEFT SIDE OF ABDOMEN. PATIENT HAS SURGICAL INCISION HORIZONTAL ABDOMEN REGION. PT VOIDS FREELY, DENIES PAIN UPON URINATION. PT REPORTS GENERLAIZED WEAKNESS. PT HAS IV TO RIGHT HAND 20G, SITE INTACT, NO REDNESS OR SWELLING NOTED. PT IS CALM AND COOPERATIVE. ALL SAFETY MEASURES IN PLACE. BED IN LOWEST POSITION, CALL LIGHT WIHIN REACH. WILL CONTINUE TO MONITOR.
[2020-01-09 21:41] VITALS: BP 149/92
[2020-01-09 21:45] VITALS: BP 135/89
--- NOTE | 2020-01-09 22:20 | NUR ---
COMMUNICATED WITH DR. VALENZUELA PATIENT REPORTING DISCOMFORT TO ABDOMEN AREA. DR. VALENZUELA COMMUNICATED IF DISCOMFORT/PAIN BECOMES WORSE TO NOTIFY DR. STALEY. COMMUNICATED DR. VALENZUELA'S INSTRUCTIONS TO PATIENT. ALL SAFETY MEASURES IN PLACE. BED IN LOWEST POSITION, CALL LIGHT WITHIN REACH. WILL CONTINUE TO MONITOR.
--- NOTE | 2020-01-10 00:15 | NUR ---
PATIENT REPORTS HAVING TWO BOWEL MOVEMENTS. PT STATES SOME RELIEF FELT TO ABDOMEN REGION. PT NOW RESTING AT BEDSIDE CHAIR. ALL SAFETY MEASURES IN PLACE. BED IN LOWEST POSITION, CALL LIGHT WITHIN REACH. WILL CONTINUE TO MONITOR.
[2020-01-10 05:18] VITALS: BP 153/92
--- NOTE | 2020-01-10 06:35 | NUR ---
PT RESTING INTERMITTENTLY WITH EYES CLOSED. PATIENT IS TELE #47, NSR, DENIES CHEST PAIN. PATIENT REPORTED PAIN AT SURGICAL SITE ONE TIME THROUGHOUT THE SHIFT, GIVEN TORADOL PRN. PATIENT STATED MEDICATION ALLEVIATED PAIN. NEW IV TO RFA 22G, SITE INTACT, NO REDNESS OR SWELLING NOTED. ALL SAFETY MEASURES IN PLACE. BED IN LOWEST POSITION, CALL LIGHT WITHIN REACH. WILL CONTINUE TO MONITOR.
--- NOTE | 2020-01-10 07:29 | NUR ---
REPORT GIVEN TO DAYSHIFT NURSE. ALL QUESTIONS/CONCERNS ADDRESSED.
--- NOTE | 2020-01-10 07:30 | NUR ---
SEEN IN BED AAOX4. NO SOB RESP DISTRESS ON ROOM AIR. ON TEL# 47 NSR. ABD DISTENDED BUT SOFT, LAST BM 01/08, DENIES NAUSEA, ON LOW FAT DIET, DRSG TO OLD NERI SITE NOTED DRY, INTACT. HORIZONTAL SURGICAL INCISION WITH DERMBOND, DRY, INTACT. DENIES PAIN AT THIS TIME. S/L ON RFA INTACT AND PATENT. PLAN OF CARE DISCUSSED. CALL LIGHT PLACED WITHIN EASY REACH. SIDERAILS UP X2.
[2020-01-10 08:14] LABS: BASOPHIL % 3.1 % (0-2); PLATELET COUNT 415 x10^3mcL (130-400)
[2020-01-10 08:16] LABS: ALKALINE PHOSPHATASE 122 U/L (46-116); ALT/SGPT 38 U/L (16-63); AST/SGOT 15 U/L (15-37); BILIRUBIN TOTAL 0.4 mg/dL (0.20-1.00); CALCIUM 8.3 mg/dL (8.5-10.1); CARBON DIOXIDE 31.2 mmol/L (21-32); CHLORIDE SERUM 102 mmol/L (98-107); CREATININE SERUM 0.8 mg/dL (0.7-1.3); GFR1 > 60 mL/min; GLUCOSE SERUM 165 mg/dL (74-106); POTASSIUM SERUM 4.2 mmol/L (3.5-5.1); SODIUM SERUM 139 mmol/L (136-145)
[2020-01-10 08:18] LABS: ALBUMIN 2.4 g/dL (3.4-5.0); TOTAL PROTEIN, SERUM 5.1 g/dL (6.4-8.2)
[2020-01-10 08:34] VITALS: BP 145/85
[2020-01-10] MEDS ORDERED: FORTAMET500 M1 PO (11:14)
[2020-01-10] MEDS ORDERED: LEVAQUIN500 M1 PO (11:15)
[2020-01-10] MEDS ORDERED: NORCO1 TA2 PO (11:16)
[2020-01-10 11:20] VITALS: BP 145/85
[2020-01-10 12:21] VITALS: BP 136/92
--- NOTE | 2020-01-10 14:00 | NUR ---
DISCHARGE INSTRUCTION/PRESCRIPTION GIVEN TO PATIENT WHO IS AWAKE,ALERT,ORIENTED X4. S/L ON RFA REMOVED WITH CATHETER INTACT, DRSG APPLIED. TELEMETRY RETURNED TO [place]. DEMONSTRATED HOW TO PERFORM A DRESSING CHANGE AT HOME, PATIENT VERBALIZED UNDERSTANDING. DRSG CHANGE SUPPLIES PROVIDED. BROUGHT TO [facility] PICKED UP HIS MOTHER. CONDITION STABLE UPON DISCHARGE.
== END 2020-01-10 13:58 | disposition home or self-care (01) | DRG 416 ==
LOC: ED 10:10 → DU 13:02 → MU 13:02 → DU 01-05 03:37
PROVIDERS: Anesthesiology; Emergency Medicine; Surgery; ADMIT Internal Medicine; ATTEND Internal Medicine
PROC: 0FJ44ZZ Inspection of Gallbladder, Percutaneous Endoscopic Approach (ICD-10-PCS; 2020-01-04)
PROC: 0DNU0ZZ Release Omentum, Open Approach (ICD-10-PCS; 2020-01-04)
PROC: 0FT40ZZ Resection of Gallbladder, Open Approach (ICD-10-PCS; principal; 2020-01-04 19:30)
DX: K82.A2 Perforation of gallbladder in cholecystitis (principal); E11.65 Type 2 diabetes mellitus with hyperglycemia; D72.829 Elevated white blood cell count, unspecified; Z83.3 Family history of diabetes mellitus; I10 Essential (primary) hypertension; Z20.828 Contact with and (suspected) exposure to other viral communicable diseases
CPT/HCPCS: 82962; 97116-GP; G0378; J0330; J0694; J1170; J1815; J1885; J1956; J2270; J2405; J2550; J2704; J3010; J3490; J7030; J7040; J7042; J7120